=== PATIENT | female | born 1935 | race Caucasian/White ===

== ENCOUNTER 2016-11-09 21:25 | Emergency (ER) | payer MEDICARE, BC ==
[~2016-11-09 21:25] MED LIST: HUMULIN R1 ML SC; INSNOVN SC; LEVOTHYROXIN75 MCG PO; LOTREL1 CA5 PO; MULTIPLE VIT PO; NORV10 PO; PRAVACHOL80 MG PO
[2016-11-09 22:20] LABS: BASOPHILS 0.1 %; BASOPHILS ABSOLUTE 0.02 10/3/uL (0.0-0.16); EOSINOPHILS 1.2 %; EOSINOPHILS ABSOLUTE 0.19 10/3/uL (0.0-0.53); HEMATOCRIT 33.5 % (36.0-48.0); IMMATURE GRANULOCYTES 0.3 %; IMMATURE GRANULOCYTES ABSOLUTE 0.05 10/3/uL (0.0-0.11); LYMPHOCYTES 17.5 %; LYMPHOCYTES ABSOLUTE 2.81 10/3/uL (0.67-4.30); MANUAL DIFF NO %; MEAN CORPUS HGB CONC 32.8 g/dL (32.0-36.0); MEAN CORPUSCULAR HEMOGLOB 27.5 pg (26.0-34.0); MEAN CORPUSCULAR VOLUME 83.8 fL (80-100); MEAN PLATELET VOLUME 12.9 fL (9.2-13.0); MONOCYTES 7.4 %; MONOCYTES ABSOLUTE 1.19 10/3/uL (0.21-1.20); NEUTROPHILS 73.5 %; NEUTROPHILS ABSOLUTE 11.77 10/3/uL (2.02-8.40); PLATELET COUNT 229 10/3/uL (150-400)
[2016-11-09 22:28] LABS: INTERNATIONAL NORMAL RATI 1.1 UNITS (-)
[2016-11-09 22:32] LABS: PARTIAL THROMBO TIME 27.7 SEC (22.5-37.2)
[2016-11-09 22:35] LABS: A/G RATIO 1.1 (0.7-1.9); ALBUMIN 3.6 G/DL (3.5-5.0); ALKALINE PHOSPHATASE 169 U/L (45-117); BUN (BLOOD UREA NITROGEN) 19 MG/DL (6-23); CALCIUM, SERUM 8.7 MG/DL (8.5-10.4); CHLORIDE, SERUM 110 MMOL/L (96-112); CO2 (CARBON DIOXIDE) 23 MMOL/L (24-34); CREATININE 0.98 MG/DL (0.55-1.02); DIRECT BILIRUBIN 0.1 MG/DL (0.0-0.4); GFR AFRICAN AMERICAN 64 ML/MIN (>=60); GFR NON AFRICAN AMERICAN 55 ML/MIN (>=60); GLOBULIN 3.2 G/DL (2.5-4.1); GLUCOSE, SERUM 128 MG/DL (60-99); INDIRECT BILIRUBIN(NOT ORDER) 0.3 MG/DL (0.1-0.9); POTASSIUM, SERUM 3.4 MMOL/L (3.5-5.3); SGOT(AST) 14 U/L (5-40); SGPT(ALT) 16 U/L (5-65); SODIUM, SERUM 143 MMOL/L (135-148); TOTAL BILIRUBIN 0.4 MG/DL (0-1.2); TOTAL PROTEIN 6.8 G/DL (6.0-8.5)
[2016-11-10 02:05] LABS: ASCORBIC ACID (UR NOT ORDER) NEG (NEG); BILIRUBIN, URINE NEGATIVE (NEG); ER URINALYSIS TAT 0 Hrs 00 Mins; KETONE, URINE TRACE MG/DL (NEG); LEUKOCYTE ESTERASE(NOT OR MOD (NEG); NITRITE (URINE) NEG (NEG); WBC (NOT ORDERED) (RFLEX) 14 (0-5)
== END 2016-11-10 03:10 | disposition home or self-care (01) ==
LOC: ER 21:25
PROVIDERS: Nurse Practitioner
DX: K52.9 Noninfective gastroenteritis and colitis, unspecified (principal); N39.0 Urinary tract infection, site not specified; E86.0 Dehydration; D72.829 Elevated white blood cell count, unspecified; J44.9 Chronic obstructive pulmonary disease, unspecified; I10 Essential (primary) hypertension; E11.9 Type 2 diabetes mellitus without complications; F17.200 Nicotine dependence, unspecified, uncomplicated; Z90.710 Acquired absence of both cervix and uterus; Z88.5 Allergy status to narcotic agent; Z79.4 Long term (current) use of insulin; Z79.899 Other long term (current) drug therapy
CPT/HCPCS: 74176; 80053; 81001; 82248; 83690; 85025; 85610; 85730; 87086; 93005; 96374; 99285